=== PATIENT | female | born 1980 | race Caucasian/White ===

== ENCOUNTER 2017-01-27 17:23 | Emergency (ER) | payer MEDICAID ==
[~2017-01-27] VITALS: Ht 154.9 cm; Wt 69.9 kg
[2017-01-27 17:47] VITALS: BP 123/73
--- NOTE | 2017-01-27 19:20 | NUR ---
Patient ambulated to bed 5. RN evaluating patient at bedside.
--- NOTE | 2017-01-27 19:29 | NUR ---
Patient being evaluated by Dr. Hamilton at bedside.
--- NOTE | 2017-01-27 19:34 | NUR ---
36/F c/o right ear pain since this morning after cleaning her ears with q-tip. Pt states "I think I poked myself too hard." Pt c/o 02/16 pain to right ear. Pt states "I think the tip of the q-tip is stuck inside." AOX4, [place] speaking. VSS. Denies medical hx.
[2017-01-27 19:40] VITALS: BP 110/71
--- NOTE | 2017-01-27 19:40 | NUR ---
Patient discharged with v/s stable. Written and verbal after care instructions given and explained to patient. Patient verbalized understanding. Ambulatory steady gait. All questions addressed prior to discharge. Advised to follow up at [facility] for ENT specialist. Address and phone number provided to patient.
== END 2017-01-27 19:40 | disposition home or self-care (01) ==
LOC: MED 17:23
DX: T16.1XXA Foreign body in right ear, initial encounter (principal); X58.XXXA Exposure to other specified factors, initial encounter; Y93.89 Activity, other specified; Y92.89 Other specified places as the place of occurrence of the external cause; Y99.8 Other external cause status
CPT/HCPCS: 69200; 99284

== ENCOUNTER 2021-05-23 20:40 | Emergency (ER) | payer MEDICAID ==
[~2021-05-23] VITALS: Ht 152.4 cm; Wt 78.0 kg
[2021-05-23 21:00] VITALS: BP 133/70
--- NOTE | 2021-05-23 21:05 | NUR ---
to lobby to a/w evaulation
--- NOTE | 2021-05-24 01:15 | NUR ---
PT CALLED IN LOBBY AND OUTSIDE WITH NO ANSWER.
--- NOTE | 2021-05-24 01:28 | NUR ---
CALLED PT PHONE NUMBER AND RECIEVED NO ANSWER
--- NOTE | 2021-05-24 01:31 | NUR ---
CALLED PT ON PERSONAL PHONE, PER PT "I'M FINE. I WENT HOME.' PT ELOPED AT THIS TIME.
== END 2021-05-24 01:30 | disposition left against medical advice (07) ==
LOC: MED 20:40
DX: O20.0 Threatened abortion (principal); Z3A.01 Less than 8 weeks gestation of pregnancy
CPT/HCPCS: 36415; 81002; 81025; 84702; 86886; 86900; 86901; 99283